=== PATIENT | male | born 1985 | race Caucasian/White ===

== ENCOUNTER 2023-02-22 08:10 | Emergency (ER) | payer OTHER ==
[~2023-02-22] VITALS: Ht 185.4 cm; Wt 99.8 kg
[2023-02-22 08:10] VITALS: BP_SYST 156
[2023-02-22] MEDS ORDERED: ONDANSETRON HCL 4 MG/2 ML VIAL IVP ONE (09:00)
[2023-02-22] MEDS ORDERED: FOLIC ACID 1 MG, THIAMINE HCL 100 MG, MAGNESIUM SULFATE 1 GM, MVI 10 ML in NACL 0.9% 1,... IV ONE (09:00)
[2023-02-22] MEDS ORDERED: DIAZEPAM 10 MG/2 ML DISP.SYRIN IVP ONE (09:00)
[2023-02-22 09:24] LABS: BASOPHILS % (AUTO) 0.9 % (0.0-2.0); EOSINOPHILS % (AUTO) 0.2 % (0.0-4.0); HEMATOCRIT 43.2 % (36-54); LYMPHOCYTES # (AUTO) 0.7 K/uL (1.0-5.5); LYMPHOCYTES % (AUTO) 13.2 % (20.5-51.5); MEAN CORPUSCULAR HEMOGLOBIN 32 pg (27-31); MEAN CORPUSCULAR HGB CONC 35 % (32-36); MEAN CORPUSCULAR VOLUME 91 fL (79.0-98.0); MONOCYTES # (AUTO) 0.5 K/uL (0.0-1.0); MONOCYTES % (AUTO) 9.4 % (1.7-9.3); NEUTROPHILS # (AUTO) 4.2 K/uL (1.8-7.7); NEUTROPHILS % (AUTO) 76.3 % (40.0-70.0); PLATELET COUNT (AUTO) 145 K/uL (130-430); RED BLOOD CELL COUNT(AUTO) 4.74 MIL/uL (4.2-6.2); RED CELL DISTRIBUTION WIDTH 13.8 % (9.0-15.0); WHITE BLOOD COUNT (AUTO) 5.5 K/uL (4.8-10.8)
[2023-02-22 09:29] LABS: ANION GAP 14 (5-15); CALCIUM 9.1 mg/dL (8.4-11.0); CHLORIDE 93 mmol/L (98-107); CREATININE 0.67 mg/dL (0.55-1.30); GFR AFRICAN AMERICAN 173 mL/min (>90); GLUCOSE 89 mg/dL (70-99); UREA NITROGEN, BLOOD 6 mg/dL (8-21)
[2023-02-22] MEDS ORDERED: FOLIC ACID 1 MG, MVI 10 ML in NACL 0.9% 1,000 ML IV ONE (09:30)
[2023-02-22] MEDS ORDERED: LORazepam 2 MG/ML VIAL IVP ONE (09:30)
[2023-02-22] MEDS ORDERED: THIAMINE HCL 100 MG, MAGNESIUM SULFATE 1 GM in NS 100 ML IV ONE (09:30)
[2023-02-22 09:43] LABS: ALANINE AMINOTRANSFERASE 368 U/L (12-78); ALBUMIN 4.2 g/dL (3.4-4.8); ALCOHOL, BLOOD 368 mg/dL (<10); ASPARTATE AMINOTRANSFERASE 442 U/L (10-37); LIPASE 173 U/L (73-393); TOTAL BILIRUBIN 1.2 mg/dL (0.0-1.0)
[2023-02-22 09:50] LABS: ACETONE, SERUM NEGATIVE (NEGATIVE)
[2023-02-22 12:05] LABS: BILIRUBIN,URINE NEGATIVE (NEGATIVE); CLARITY/URINE CLEAR (CLEAR); COLOR,URINE YELLOW (YELLOW); GLUCOSE,URINE NEGATIVE (NEGATIVE); KETONES,URINE 2+ (NEGATIVE); LEUKOCYTE ESTERASE ,URINE NEGATIVE (NEGATIVE); NITRITE, URINE NEGATIVE (NEGATIVE); PH,URINE 5.5 (5.0-8.0); PROTEIN URINE NEGATIVE (NEGATIVE); UROBILINOGEN,URINE 0.2 (0.2-1.0)
[2023-02-22 12:32] LABS: BLOOD, URINE TRACE (NEGATIVE)
[2023-02-22 12:33] LABS: BACTERIA,URINE None Seen /HPF (None Seen); MUCUS,URINE 1+ /LPF (None Seen); WBC,URINE NONE SEEN /HPF (0-3)
[2023-02-22] MEDS ORDERED: ONDA-8 TL (13:18)
[2023-02-22] MEDS ORDERED: OMEP20CA15 PO (13:18)
[2023-02-22] MEDS ORDERED: DIAZ5TAB PO (13:18)
[2023-02-22] MEDS ORDERED: FAMO40TA71 PO (13:18)
[2023-02-22 15:47] VITALS: BP_SYST 135
== END 2023-02-22 15:48 | disposition home or self-care (01) ==
LOC: SED 08:10
DX: F10.139 Alcohol abuse with withdrawal, unspecified (principal); K29.20 Alcoholic gastritis without bleeding; R11.10 Vomiting, unspecified; R53.1 Weakness; Z79.899 Other long term (current) drug therapy; Z20.822 Contact with and (suspected) exposure to COVID-19; Y90.6 Blood alcohol level of 120-199 mg/100 ml
CPT/HCPCS: 99285; 96365; 96366; 71045; 96375; 96367; 87426; 80053; 82009; 83690; 83735; 84100; 85025; 36415; 93005; 83605; 81000; G0482; J3490; J2060; J3475; J2405; J3411; J7030